=== PATIENT | male | born 1980 | race Caucasian/White ===

== ENCOUNTER 2017-01-23 19:17 | Observation (INO) | payer OTHER ==
[~2017-01-23] VITALS: Ht 180.3 cm; Wt 93.2 kg
[~2017-01-23 19:17] MED LIST changes: -AMOX875T PO; -ATROPINE SULFATE 0.1 MG/ML 5ML SYR IV PRN; -BUPIVACAINE/EPINEPHRINE 0.25% 1:200,000 30 ML VIAL ONE; -CEFAZOLIN 2000 MG/60 ML D5W IV SCH; -DEXAMETHASONE SOD INJ 4 MG/ML VIAL ONE; -EpHEDrine SULFATE INJ 50 MG/ML AMP IV PRN; -EpINEphrine INJ 1MG/ML AMP 1 MG/ML AMP ONE; -FENTANYL CITRATE INJ 50 MCG/1 ML 2 ML VIAL IV PRN; -FENTANYL CITRATE INJ 50 MCG/1 ML 2 ML VIAL ONE; -FLUMAZENIL 0.1 MG/1 ML 10 ML VIAL IV PRN; -HYDROmorphone INJ 2 MG/ML SYR/VIAL IV PRN; -LABETALOL HCL IV 5 MG/ML 20ML IV PRN; -LACTATED RINGER'S 1000ML 1,000 ML IV SCH; -LIDOCAINE HCL 2% 2 ML VIAL (20MG/ML) ONE; -MEPERIDINE HCL 25 MG/ML CARP IV PRN; -MIDAZOLAM HCL 1 MG/ML 2ML VIAL ONE; -NALOXONE HCL 0.4 MG/1 ML VIAL/CARP IV PRN; -ONDANSETRON INJ 2 MG/ML 2 ML VIAL IV PRN; -ONDANSETRON INJ 2 MG/ML 2 ML VIAL ONE; -OXYCODONE/ACETAMINOPHEN 5-325 TAB PO PRN; -PHENYLEPHRINE 100MCG/ML 5ML SYR IV PRN; -PROPOFOL IV EMULSION 10 MG/ML 20 ML VIAL IV ONE; -ROPIVACAINE 0.5% 5 MG/ML 30 ML VIAL ONE; -SODIUM CHLORIDE 0.9% 1000ML 1,000 ML IV SCH
--- NOTE | 2017-01-23 19:45 | EMERGENCY ROOM VISIT NOTE ---
History Report prepared by Natanael: Laci Darby Under the Supervision of: Dr. Power Castano M.D. 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 This shortness of breath is worse while sitting. Associated symptoms include a cough. The patient had right shoulder arthroscopic acromioplasty performed by Dr. Epperson at 1000 this morning. He denies experiencing any symptoms immediately after this surgery. 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 Please see Additional Medical History Sheet. Past Medical & Surgical Medical Problems: (1) Kidney stones (2) Right lower lobe pneumonia (3) Sinus arrhythmia Surgical Problems: (1) History of vasectomy Family History Diabetes mellitus Social History Smoking Status: Current Every Day Smoker Alcohol Use: occasionally Marital Status: Housing Status: lives with significant other Occupation Status: employed Current/Historical Medications Scheduled PRN Ketorolac Tromethamine (Toradol), 10 MG PO Q8 PRN for Pain Oxycodone/Acetaminophen 5MG/325MG (Percocet 5MG/325MG), 1-2 TABLETS PO Q6 PRN for Pain Allergies Coded Allergies: No Known Allergies (Unverified , 01/23/17) Physical Exam Vital Signs Date Time Temp Pulse Resp B/P Pulse Ox O2 Delivery O2 Flow Rate FiO2 01/23/17 22:18 75 23 135/83 92 Room Air 01/23/17 21:30 108 14 149/92 93 Room Air 01/23/17 20:45 126 18 138/117 96 Room Air 01/23/17 20:31 108 24 147/94 93 Room Air 01/23/17 19:50 123 01/23/17 19:31 98 Room Air 01/23/17 19:31 Room Air 98 01/23/17 19:20 36.5 124 24 159/97 96 Physical Exam GENERAL: Patient is hyperventilating upon exam. Some labored breathing also noted. SKIN: Bandages over right shoulder consistent with recent surgery. HEENT: Normal head, pupils equal, reactive to light and accommodation. LUNGS: Slightly decreased breath sounds on right side. HEART: No murmurs. No gallops. No rubs ABDOMEN: Soft, nontender. EXTREMITIES: Right arm in sling, consistent with recent surgery. No pedal or pretibial edema. No calf or thigh tenderness. NEUROLOGIC: Cranial nerves II-XII within normal limits. No gross motor sensory function deficits. Medical Decision & Procedures ER Provider Diagnostic Interpretation: Radiology results as stated below per my review and radiologist interpretation: CHEST ONE VIEW PORTABLE CLINICAL HISTORY: suspect right pneumo dyspnea COMPARISON STUDY: 08/24/2015 FINDINGS: Segmental atelectasis right base. Mild elevation right hemidiaphragm. Left lung is clear. IMPRESSION: Infiltrate versus segmental atelectasis right base. Mild elevation right hemidiaphragm. Electronically signed by: Manuel Escobar M.D. 01/23/2017 7:59 PM Dictated Date/Time: 01/23/2017 7:59 PM CHEST CTA for PULMONARY ARTERIES CT DOSE: 734.82 mGy.cm HISTORY: Chest pain dyspnea TECHNIQUE: Multiaxial CT images of the chest were performed following the intravenous administration of contrast to evaluate the pulmonary arteries. Maximal intensity projection images were also obtained. COMPARISON STUDY: None. FINDINGS: Thoracic aorta is normal throughout. Pulmonary vasculature enhances appropriately. The upper lungs are clear. There is a parenchymal infiltrate medial aspect right lower lobe. This potentially relates to aspiration pneumonitis. There are postoperative changes about the right shoulder and anterior right chest wall. IMPRESSION: 1. Study is negative for pulmonary embolus. 2. Focal consolidative infiltrate medial aspect right base. 3. Given the patient's history, aspiration pneumonitis is a diagnostic possibility. Electronically signed by: Manuel Escobar M.D. 01/23/2017 9:20 PM Dictated Date/Time: 01/23/2017 9:16 PM Laboratory Results 01/23/17 19:45 Red Blood Count 5.34, Mean Corpuscular Volume 86.1, Mean Corpuscular Hemoglobin 31.1, Mean Corpuscular Hemoglobin Concent 36.1, Mean Platelet Volume 10.8, Neutrophils (%) (Auto) 92.1, Lymphocytes (%) (Auto) 6.8, Monocytes (%) (Auto) 0.9, Eosinophils (%) (Auto) 0.0, Basophils (%) (Auto) 0.0, Neutrophils # (Auto) 13.64, Lymphocytes # (Auto) 1.00, Monocytes # (Auto) 0.13, Eosinophils # (Auto) 0.00, Basophils # (Auto) 0.00 01/23/17 19:45 Test 01/23/17 19:45 01/23/17 19:51 White Blood Count 14.80 K/uL (4.8-10.8) Red Blood Count 5.34 M/uL (4.7-6.1) Hemoglobin 16.6 g/dL (14.0-18.0) Hematocrit 46.0 % (42-52) Mean Corpuscular Volume 86.1 fL (80-100) Mean Corpuscular Hemoglobin 31.1 pg (25-34) Mean Corpuscular Hemoglobin Concent 36.1 g/dl (32-36) Platelet Count 268 K/uL (130-400) Mean Platelet Volume 10.8 fL (7.4-10.4) Neutrophils (%) (Auto) 92.1 % Lymphocytes (%) (Auto) 6.8 % Monocytes (%) (Auto) 0.9 % Eosinophils (%) (Auto) 0.0 % Basophils (%) (Auto) 0.0 % Neutrophils # (Auto) 13.64 K/uL (1.4-6.5) Lymphocytes # (Auto) 1.00 K/uL (1.2-3.4) Monocytes # (Auto) 0.13 K/uL (0.11-0.59) Eosinophils # (Auto) 0.00 K/uL (0-0.5) Basophils # (Auto) 0.00 K/uL (0-0.2) RDW Standard Deviation 40.6 fL (36.4-46.3) RDW Coefficient of Variation 12.8 % (11.5-14.5) Immature Granulocyte % (Auto) 0.2 % Immature Granulocyte # (Auto) 0.03 K/uL (0.00-0.02) Anion Gap 13.0 mmol/L (3-11) Est Creatinine Clear Calc Drug Dose 93.0 ml/min Estimated GFR () 81.9 Estimated GFR (Non- 70.7 BUN/Creatinine Ratio 7.9 (10-20) Calcium Level 10.5 mg/dl (8.5-10.1) Total Bilirubin 0.6 mg/dl (0.2-1) Aspartate Amino Transf (AST/SGOT) 19 U/L (15-37) Alanine Aminotransferase (ALT/SGPT) 39 U/L (12-78) Alkaline Phosphatase 60 U/L (45-117) Total Protein 8.0 gm/dl (6.4-8.2) Albumin 4.1 gm/dl (3.4-5.0) Globulin 3.9 gm/dl (2.5-4.0) Albumin/Globulin Ratio 1.1 (0.9-2) Bedside D-Dimer 366 ng/mlFEU (0-450) Laboratory results as stated above per my review. Medications Administered Medications (Trade) Dose Ordered Sig/Keke Route Start Time Stop Time Status Last Admin Dose Admin Morphine Sulfate (MoRPHine SULFATE INJ) 8 mg Q1H PRN IV 01/23/17 21:00 01/23/17 23:04 DC 01/23/17 20:49 8 MG Ondansetron HCl (Zofran Inj) 4 mg PRN PRN IV 01/23/17 21:00 01/23/17 23:03 DC 01/23/17 20:49 4 MG Ceftriaxone Sodium (Rocephin Inj) 1 gm NOW STAT IV 01/23/17 21:25 01/23/17 21:26 DC 01/23/17 21:48 1 GM ECG Indication: chest pain, SOB/dyspnea Rate (beats per minute): 116 Rhythm: sinus tachycardia Findings: no acute ischemic change, no ectopy ED Course 1929: Past medical records reviewed. The patient was evaluated in room A12B. A complete history and physical examination was performed. 2051 : Upon reevaluation, the patient seems to be experiencing increased chest pain. Will order additional pain medication and monitor patient further. 2099: Ordered Zofran Injection 4 mg IV, Morphine Sulfate 8 mg IV. 2124: Ordered Rocephin Injection 1 gm IV. 2125: I updated the patient of the treatment plan. He is agreeable at this time. 2199: I discussed the patient's case with Dr. Villarreal ([facility] [place] He will evaluate the patient for further management and care. Medical Decision Nurses notes reviewed. Medical history sheet reviewed. Differential diagnosis includes but is not limited to: Pneumothorax, pulmonary embolism, atelectasis, pneumonia, post operative pain. Multiple labs, EKG and imaging were obtained. Please see above. The patient arrived here in extreme pain with labored breathing and diaphoresis. Patient could not find a comfortable position. There is initially concerned about a pneumothorax or PE. Chest x-ray revealed a unusual infiltrate. Despite a negative d-dimer I felt obligated to follow-up with a CT. No PE was found. Most likely this represents an aspiration pneumonia. The patient was given IV antibiotics after blood cultures were obtained. Patient was given pain medication. The patient will require admission due to his severe pain and labored breathing. I discussed care with the patient, family and hospitalist. Consults Time Called: 2131 Consulting Physician: Dr. Villarreal ([facility] [place]) Returned Call: 2199 Discussed the patient's case with Dr. Villarreal ([facility] [place]). The patient will be evaluated for further management. Impression Primary Impression: Aspiration pneumonia Scribe Attestation The scribe's documentation has been prepared under my direction and personally reviewed by me in its entirety. I confirm that the note above accurately reflects all work, treatment, procedures, and medical decision making performed by me. Departure Information Dispostion Being Evaluated By Hospitalist Referrals Reed Epperson DO (PCP) Patient Instructions My [facility]
[2017-01-23 19:58] LABS: COMPLETE YES; IG% 0.2 %; LYMPH % 6.8 %; MEAN CELL VOLUME 86.1 fL (80-100); MEAN CORPUSCULAR HEMOGLOBIN 31.1 pg (25-34); MEAN CORPUSCULAR HGB CONC 36.1 g/dl (32-36); MEAN PLATELET VOLUME 10.8 fL (7.4-10.4); MONO % 0.9 %; NEUT % 92.1 %; PLATELET COUNT 268 K/uL (130-400); RED BLOOD COUNT 5.34 M/uL (4.7-6.1)
--- NOTE | 2017-01-23 20:00 | DIAGNOSTIC IMAGING REPORT ---
CHEST ONE VIEW PORTABLE CLINICAL HISTORY: suspect right pneumo dyspnea COMPARISON STUDY: 08/24/2015 FINDINGS: Segmental atelectasis right base. Mild elevation right hemidiaphragm. Left lung is clear. IMPRESSION: Infiltrate versus segmental atelectasis right base. Mild elevation right hemidiaphragm. Electronically signed by: Manuel Escobar M.D. 01/23/2017 7:59 PM Dictated Date/Time: 01/23/2017 7:59 PM
[2017-01-23 20:15] LABS: BUN/CREATININE RATIO 7.9 (10-20); CREATININE 1.3 mg/dl (0.60-1.40)
[2017-01-23 20:18] LABS: ALB/GLOB RATIO 1.1 (0.9-2)
[2017-01-23 20:19] LABS: CALCIUM 10.5 mg/dl (8.5-10.1)
[2017-01-23] MEDS ORDERED: OPTIRAY 320 IV PRN (20:45)
[2017-01-23] MEDS ORDERED: MoRPHine SULFATE 10 MG/ML CARP/VIAL ONE (20:46)
[2017-01-23] MEDS ORDERED: ONDANSETRON INJ 2 MG/ML 2 ML VIAL ONE (20:46)
[2017-01-23] MEDS ORDERED: ONDANSETRON INJ 2 MG/ML 2 ML VIAL IV PRN ×2 (21:00→22:30)
[2017-01-23] MEDS ORDERED: MoRPHine SULFATE 10 MG/ML CARP/VIAL IV PRN (21:00)
--- NOTE | 2017-01-23 21:22 | DIAGNOSTIC IMAGING REPORT ---
CHEST CTA for PULMONARY ARTERIES CT DOSE: 734.82 mGy.cm HISTORY: Chest pain dyspnea TECHNIQUE: Multiaxial CT images of the chest were performed following the intravenous administration of contrast to evaluate the pulmonary arteries. Maximal intensity projection images were also obtained. COMPARISON STUDY: None. FINDINGS: Thoracic aorta is normal throughout. Pulmonary vasculature enhances appropriately. The upper lungs are clear. There is a parenchymal infiltrate medial aspect right lower lobe. This potentially relates to aspiration pneumonitis. There are postoperative changes about the right shoulder and anterior right chest wall. IMPRESSION: 1. Study is negative for pulmonary embolus. 2. Focal consolidative infiltrate medial aspect right base. 3. Given the patient's history, aspiration pneumonitis is a diagnostic possibility. Electronically signed by: Manuel Escobar M.D. 01/23/2017 9:20 PM Dictated Date/Time: 01/23/2017 9:16 PM
[2017-01-23] MEDS ORDERED: CEFTRIAXONE SOD INJ 1 GM ADDVIAL IV STA (21:25)
[2017-01-23 22:18] VITALS: O2SAT 92
[2017-01-23] MEDS ORDERED: ZOLPIDEM TARTRATE 5 MG TAB PO PRN (22:30)
[2017-01-23] MEDS ORDERED: ACETAMINOPHEN 325 MG TAB PO PRN (22:30)
[2017-01-23] MEDS ORDERED: HYDROCODONE/HOMATROPINE SYRUP 5MG/1.5MG 5ML UDP PO PRN (22:30)
[2017-01-23] MEDS ORDERED: MoRPHine SULFATE 4 MG/ML 1 ML CARP\\VIAL IV PRN (22:30)
[2017-01-23] MEDS ORDERED: MoRPHine SULFATE 2 MG/ML CARP IV PRN (22:30)
[2017-01-23] MEDS ORDERED: NITROGLYCERIN 0.4 MG SL PER TAB CHARGE SL PRN (22:30)
[2017-01-23] MEDS ORDERED: IV FLUIDS COMPLETED PRN (22:45)
[2017-01-23 22:59] VITALS: BP 128/81; PULSE 65; TEMP 36.7; O2SAT 95
[2017-01-23 23:00] VITALS: BP 128/81; PULSE 65; TEMP 36.7; Ht 180.3 cm; Wt 93.2 kg
[2017-01-23] MEDS: CLINDAMYCIN IV 900 MG in DEXTROSE 5% ADD-VANTAGE 100ML 100 ML IV SCH (23:33)
--- NOTE | 2017-01-23 23:44 | History and Physical ---
History & Physical Date & Time of Service: January 23, 2017 at 23:44 Chief Complaint: R Lower Lobe Pneumonia, Sinus Arrhythmia Primary Care Physician: No Doctor, Assigned History of Present Illness Source: patient, spouse The patient is a 36-year-old male who underwent right shoulder arthroscopic acromioplasty by Dr. Epperson at 10 AM in the morning, then developed severe right posterior chest pain and shortness of breath when he arrived home. He presented to the emergency department with those symptoms and a cough, and workup revealed an abnormal chest x-ray and CT of chest suggesting pneumonia, but no pulmonary embolism. Past Medical/Surgical History Medical Problems: (1) Kidney stones Status: Resolved Surgical Problems: (1) History of vasectomy Status: Resolved Family History Diabetes mellitus Social History Smoking Status: Current Every Day Smoker Smokeless Tobacco Use: No Alcohol Use: none Drug Use: none Marital Status: Housing status: lives with family Occupational Status: employed Multi-Drug Resistant Organisms History of MDRO: No Allergies Coded Allergies: No Known Allergies (Unverified , 01/23/17) Home Medications Scheduled PRN Ketorolac Tromethamine (Toradol), 10 MG PO Q8 PRN for Pain Oxycodone/Acetaminophen 5MG/325MG (Percocet 5MG/325MG), 1-2 TABLETS PO Q6 PRN for Pain Review of Systems Constitutional: No chills, No fatigue, No fever, No problem reported, No sweats , No weakness, No weight loss Eyes: No diplopia, No discharge, No eye pain, No problem reported, No redness, No worsening of vision ENT: No dental problems, No hearing loss, No nasal symptoms, No problem reported, No sore throat, No tinnitus, No trouble swallowing, No unusual epistaxis Respiratory: + cough, + dyspnea on exertion, + shortness of breath, No dyspnea at rest, No hemoptysis, No sputum, No wheezing Cardiovascular: + chest pain, No PND, No claudication, No edema, No orthopnea, No palpitations Abdomen: No GI bleeding, No constipation, No diarrhea, No nausea, No pain, No problem reported, No vomiting Musculoskeletal: No calf pain, No joint pain, No muscle pain, No problem reported, No swelling Genitourinary - Male: No dysuria, No hematuria, No impotence, No lesions, No penile discharge, No problem reported, No urinary frequency, No urinary hesitancy, No urinary incontinence, No urinary retention, No urinary urgency Neurologic: No balance problems, No memory loss, No numbness/tingling, No paralysis, No problem reported, No vertigo, No weakness Psychiatric: No anhedonism, No anxiety, No depression symptoms, No insomnia, No problem reported, No substance abuse Endocrine: No excessive thirst, No excessive urination, No fatigue, No problem reported Hematologic / Lymphatic: No abnormal bleeding/bruising, No clotting problems, No night sweats, No problem reported, No swollen lymph nodes Integumentary: No bleeding, No color change, No itch, No new/changing skin lesions, No problem reported, No rash Allergic / Immunologic: No environmental allergies, No food allergies, No frequent infections, No hives, No pet sensitivities, No poor healing, No problem reported, No prolonged convalescence, No seasonal allergies Physical Exam Vital Signs Date Time Temp Pulse Resp B/P Pulse Ox O2 Delivery O2 Flow Rate FiO2 01/23/17 22:59 36.7 65 15 128/81 95 Room Air 01/23/17 22:18 75 23 135/83 92 Room Air 01/23/17 21:30 108 14 149/92 93 Room Air 01/23/17 20:45 126 18 138/117 96 Room Air 01/23/17 20:31 108 24 147/94 93 Room Air 01/23/17 19:50 123 01/23/17 19:31 98 Room Air 01/23/17 19:31 Room Air 98 01/23/17 19:20 36.5 124 24 159/97 96 General Appearance: WD/WN, + moderate distress (the patient was in moderately severe distress secondary to right sided chest pain only during coughing.) Head: normocephalic, atraumatic Eyes: normal inspection, PERRL, EOMI, sclerae normal ENT: normal ENT inspection, hearing grossly normal, pharynx normal Neck: supple, no adenopathy, thyroid normal, no JVD, no carotid bruits, trachea midline Respiratory/Chest: chest non-tender, no accessory muscle use, + respiratory distress (moderately severe respiratory distress only during paroxysmal coughing ), + decreased breath sounds (at right base) Cardiovascular: no edema, no gallop, no JVD, no murmur, normal peripheral pulses, + pertinent finding (cardiac monitoring in the ED showed normal sinus rhythm with significant sinus arrhythmia) Abdomen/GI: normal bowel sounds, non tender, soft, no organomegaly, no pulsatile mass Back: normal inspection, no CVA tenderness, no muscle spasm, normal range of motion Extremities/Musculoskelatal: normal inspection, no calf tenderness, normal capillary refill, no pedal edema, normal range of motion, non-tender Neurologic/Psych: hospice aide II-XII nml as tested, no motor/sensory deficits, alert, normal mood/affect, normal reflexes, oriented x 3 Skin: normal color, warm/dry, no rash Lymphatic: no adenopathy Diagnostics Laboratory Results Results Past 24 Hours Test 01/23/17 19:45 01/23/17 19:51 Range/Units White Blood Count 14.80 4.8-10.8 K/uL Red Blood Count 5.34 4.7-6.1 M/uL Hemoglobin 16.6 14.0-18.0 g/dL Hematocrit 46.0 42-52 % Mean Corpuscular Volume 86.1 80-100 fL Mean Corpuscular Hemoglobin 31.1 25-34 pg Mean Corpuscular Hemoglobin Concent 36.1 32-36 g/dl Platelet Count 268 130-400 K/uL Mean Platelet Volume 10.8 7.4-10.4 fL Neutrophils (%) (Auto) 92.1 % Lymphocytes (%) (Auto) 6.8 % Monocytes (%) (Auto) 0.9 % Eosinophils (%) (Auto) 0.0 % Basophils (%) (Auto) 0.0 % Neutrophils # (Auto) 13.64 1.4-6.5 K/uL Lymphocytes # (Auto) 1.00 1.2-3.4 K/uL Monocytes # (Auto) 0.13 0.11-0.59 K/uL Eosinophils # (Auto) 0.00 0-0.5 K/uL Basophils # (Auto) 0.00 0-0.2 K/uL RDW Standard Deviation 40.6 36.4-46.3 fL RDW Coefficient of Variation 12.8 11.5-14.5 % Immature Granulocyte % (Auto) 0.2 % Immature Granulocyte # (Auto) 0.03 0.00-0.02 K/uL Sodium Level 145 136-145 mmol/L Potassium Level 4.0 3.5-5.1 mmol/L Chloride Level 109 98-107 mmol/L Carbon Dioxide Level 23 21-32 mmol/L Anion Gap 13.0 3-11 mmol/L Blood Urea Nitrogen 10 7-18 mg/dl Creatinine 1.30 0.60-1.40 mg/dl Est Creatinine Clear Calc Drug Dose 93.0 ml/min Estimated GFR () 81.9 Estimated GFR (Non- 70.7 BUN/Creatinine Ratio 7.9 10-20 Random Glucose 144 70-99 mg/dl Calcium Level 10.5 8.5-10.1 mg/dl Total Bilirubin 0.6 0.2-1 mg/dl Aspartate Amino Transf (AST/SGOT) 19 15-37 U/L Alanine Aminotransferase (ALT/SGPT) 39 12-78 U/L Alkaline Phosphatase 60 45-117 U/L Total Protein 8.0 6.4-8.2 gm/dl Albumin 4.1 3.4-5.0 gm/dl Globulin 3.9 2.5-4.0 gm/dl Albumin/Globulin Ratio 1.1 0.9-2 Bedside D-Dimer 366 0-450 ng/mlFEU Microbiology Results 01/23/17 Blood Culture, Received Pending 01/23/17 Blood Culture, Received Pending Diagnostic Radiology Patient Name: THELMA CEDENO Unit Number: [id number] Dictated: 01/23/171958 Transcribed: 01/23/171958 MS Printed Date/Time: [~ rep prt dt]/[~ rep prt tm] [~ rep ct labl] - [~ rep ct ivnm] [facility] [place] [address] Dictated: 01/23/171958 Transcribed: 01/23/171958 MS Printed Date/Time: [~ rep prt dt]/[~ rep prt tm] [~ rep ct labl] - [~ rep ct ivnm] [~ rep ct add3]] CHEST ONE VIEW PORTABLE CLINICAL HISTORY: suspect right pneumo dyspnea COMPARISON STUDY: 08/24/2015 FINDINGS: Segmental atelectasis right base. Mild elevation right hemidiaphragm. Left lung is clear. IMPRESSION: Infiltrate versus segmental atelectasis right base. Mild elevation right hemidiaphragm. Electronically signed by: Manuel Escobar M.D. 01/23/2017 7:59 PM Dictated Date/Time: 01/23/2017 7:59 PM The status of this report is Signed. Draft = Not yet reviewed or approved by Radiologist. Signed = Reviewed and approved by Radiologist. <AttendingPhy></AttendingPhy> <FamilyPhy>Reed Epperson, DO</FamilyPhy> < PrimaryPhy>Reed Epperson, DO</PrimaryPhy> <UnitNumber>[id number]</UnitNumber > <VisitNumber>[id number]</VisitNumber> <PatientName>THELMA CEDENO</PatientName > <DateOfBirth>1980</DateOfBirth> <Location>[facility]</Location> <ServiceDate> 01/23/17</ServiceDate> <MNE>ESINDI</MNE> <OrderingPhy>Power Castano M.D.</ OrderingPhy> <OrderingPhyMNE>f rep ord dr hernández</OrderingPhyMNE> <DictatingPhyMNE> f rep dict dr hernández</DictatingPhyMNE> <CCListMNE>f rep ct mne</CCListMNE> < AdmittingPhyMNE>f pt admit dr hernández</AdmittingPhyMNE> <AttendingPhyMNE>f pt attend dr hernández</AttendingPhyMNE> <ConsultingPhyMNE>f pt consult dr hernández</ConsultingPhyMNE> <FamilyPhyMNE>f pt fam dr hernández</FamilyPhyMNE> <OtherPhyMNE>f pt other dr hernández</OtherPhyMNE> < PrimaryPhyMNE>f pt prim care dr hernández</PrimaryPhyMNE> <ReferringPhyMNE>f pt referring dr hernández</ReferringPhyMNE> Patient Name: THELMA CEDENO Unit Number: [id number] Dictated: 01/23/172115 Transcribed: 01/23/172115 MS Printed Date/Time: [~ rep prt dt]/[~ rep prt tm] [~ rep ct labl] - [~ rep ct ivnm] [facility] [place] [address] Dictated: 01/23/172115 Transcribed: 01/23/172115 MS Printed Date/Time: [~ rep prt dt]/[~ rep prt tm] [~ rep ct labl] - [~ rep ct ivnm] [~ rep ct add3]] CHEST CTA for PULMONARY ARTERIES CT DOSE: 734.82 mGy.cm HISTORY: Chest pain dyspnea TECHNIQUE: Multiaxial CT images of the chest were performed following the intravenous administration of contrast to evaluate the pulmonary arteries. Maximal intensity projection images were also obtained. COMPARISON STUDY: None. FINDINGS: Thoracic aorta is normal throughout. Pulmonary vasculature enhances appropriately. The upper lungs are clear. There is a parenchymal infiltrate medial aspect right lower lobe. This potentially relates to aspiration pneumonitis. There are postoperative changes about the right shoulder and anterior right chest wall. IMPRESSION: 1. Study is negative for pulmonary embolus. 2. Focal consolidative infiltrate medial aspect right base. 3. Given the patient's history, aspiration pneumonitis is a diagnostic possibility. Electronically signed by: Manuel Escobar M.D. 01/23/2017 9:20 PM Dictated Date/Time: 01/23/2017 9:16 PM The status of this report is Signed. Draft = Not yet reviewed or approved by Radiologist. Signed = Reviewed and approved by Radiologist. <AttendingPhy></AttendingPhy> <FamilyPhy>No Doctor, Assigned</FamilyPhy> < PrimaryPhy>No Doctor, Assigned</PrimaryPhy> <UnitNumber>[id number]</UnitNumber> <VisitNumber>[id number]</VisitNumber> <PatientName>THELMA CEDENO</PatientName> <DateOfBirth>1980</DateOfBirth> <Location>[facility]</Location> <ServiceDate></ServiceDate> <MNE>ESINDI</MNE> <OrderingPhy>Power Castano M.D.</ OrderingPhy> <OrderingPhyMNE>f rep ord dr hernández</OrderingPhyMNE> <DictatingPhyMNE> f rep dict dr hernández</DictatingPhyMNE> <CCListMNE>f rep ct mne</CCListMNE> < AdmittingPhyMNE>f pt admit dr hernández</AdmittingPhyMNE> <AttendingPhyMNE>f pt attend dr hernández</AttendingPhyMNE> <ConsultingPhyMNE>f pt consult dr hernández</ConsultingPhyMNE> <FamilyPhyMNE>f pt fam dr hernández</FamilyPhyMNE> <OtherPhyMNE>f pt other dr hernández</OtherPhyMNE> < PrimaryPhyMNE>f pt prim care dr hernández</PrimaryPhyMNE> <ReferringPhyMNE>f pt referring dr hernández</ReferringPhyMNE> EKG EKG shows sinus tachycardia at 116 bpm, possible old septal infarct, with no acute ST-T changes. Impression Assessment and Plan Right lower lobe pneumonia--patient be admitted and placed on ceftriaxone 1 g IV daily, clindamycin 900 mg IV every 8 hours, duonebs every 4 hours while awake and every 2 hours when necessary, and Hycodan syrup 5 ML's by mouth every [address] on Toradol 30 mg IV every 6 hours when necessary, oxycodone/acetaminophen 5/325 by mouth every 6 hours when necessary, and morphine sulfate 2-4 mg IV every 2 hours when necessary. Sinus arrhythmia with relatively prolonged pauses noted on monitor in the ED/ abnormal EKG possible old septal infarct--patient be admitted to telemetry unit for cardiac rhythm monitoring and a 2-D echocardiogram with Dopplers. Status post right shoulder arthroscopic acromioplasty--he is presently wearing a sling, and has no complaints as far as pain. Surgery was by Dr. Epperson. Level of Care Telemetry Advanced Directives Existing Advance Directive: No Existing Living Will: No Existing Power of [place]: No Resuscitation Status FULL RESUSCITATION VTE Prophylaxis VTE Risk Assessment Done? Y/N: Yes Risk Level: Moderate Given or contraindicated: SCD's
[2017-01-24] MEDS: OXYCODONE/ACETAMINOPHEN 5-325 TAB PO PRN ×2 (00:50→08:12)
[2017-01-24] MEDS: KETOROLAC TROMETHAMINE 30 MG/ML VIAL IV PRN ×2 (03:46→10:35)
[2017-01-24 04:07] VITALS: BP 124/68; PULSE 69; TEMP 36.7; O2SAT 93
[2017-01-24 06:44] LABS: BASO % 0.1 %; BASO ABS # 0.01 K/uL (0-0.2); COMPLETE YES; HEMATOCRIT 42.3 % (42-52); IG% 0.4 %; LYMPH % 12.4 %; LYMPH ABS # 2.38 K/uL (1.2-3.4); MEAN CELL VOLUME 87.2 fL (80-100); MEAN CORPUSCULAR HEMOGLOBIN 29.9 pg (25-34); MEAN CORPUSCULAR HGB CONC 34.3 g/dl (32-36); MEAN PLATELET VOLUME 11.1 fL (7.4-10.4); MONO % 6.9 %; NEUT % 80.2 %; PLATELET COUNT 252 K/uL (130-400); RED BLOOD COUNT 4.85 M/uL (4.7-6.1); WHITE BLOOD COUNT 19.15 K/uL (4.8-10.8)
[2017-01-24 07:30] LABS: BUN/CREATININE RATIO 11.1 (10-20); CREATININE 0.89 mg/dl (0.60-1.40); MAGNESIUM 1.9 mg/dl (1.8-2.4); POTASSIUM 3.8 mmol/L (3.5-5.1)
[2017-01-24 08:00] VITALS: BP 123/68; PULSE 75; TEMP 36.9; O2SAT 93
[2017-01-24] MEDS ORDERED: ALBUT/IPRATROP 3MG/0.5MG NEB 3 ML VIAL INH SCH (08:00)
[2017-01-24] MEDS: CLINDAMYCIN IV 900 MG in DEXTROSE 5% ADD-VANTAGE 100ML 100 ML IV SCH (08:13)
[2017-01-24] MEDS ORDERED: AMOX875T PO (10:05)
--- NOTE | 2017-01-24 10:07 | Discharge Instructions ---
Discharge Instructions Date of Service January 24, 2017. Admission Reason for Admission: R Lower Lobe Pneumonia, Sinus Arrhythmia Discharge Discharge Diagnosis / Problem: aspiration pneumonia Discharge Goals Goal(s): Diagnostic testing, Therapeutic intervention Activity Recommendations Activity Limitations: as noted below (please follow directions of Dr Epperson for your shoulder) . Current Hospital Diet Patient's current hospital diet: Regular Diet Discharge Diet Recommended Diet: Regular Diet Pending Studies Studies pending at discharge: yes List of pending studies: blood cultures Medical Emergencies . Who to Call and When: Medical Emergencies: If at any time you feel your situation is an emergency, please call 911 immediately. . Non-Emergent Contact Non-Emergency issues call your: Primary Care Provider (follow up in a week for pneumonia recheck) Call Non-Emergent contact if: temperature is above 101, your pain is unusual for you . . "Provider Documentation" section prepared by Fidel Olivas. . VTE Core Measure Inpt VTE Proph given/why not?: SCD's, Treatment not indicated
[2017-01-24 10:26] VITALS: BP 124/68; PULSE 69; TEMP 36.7; O2SAT 93
--- NOTE | 2017-01-24 13:40 | Discharge Summary ---
Discharge Summary Date of Service January 24, 2017. Discharge Summary Admission Date: January 23, 2017 at 22:20 Discharge Date: January 24, 2017 Discharge Disposition: Home Principal Diagnosis: right lower lobe pneumonia, sinus arrythmia Medication Reconciliation New Medications: Amoxicillin & Pot Clavulanate (Augmentin 875-125 mg) 1 Tab Tab 875 MG PO BID, #20 TAB Continued Medications: Ketorolac Tromethamine (Toradol) 10 Mg Tab 10 MG PO Q8 PRN for Pain, #15 TAB Oxycodone/Acetaminophen 5MG/325MG (Percocet 5MG/325MG) Tab 1-2 TABLETS PO Q6 PRN for Pain, #40 TAB Discharge Exam Review of Systems: Constitutional: No chills, No fatigue, No fever, No weakness Respiratory: No cough, No dyspnea on exertion, No shortness of breath, No sputum Cardiovascular: No chest pain, No edema, No orthopnea Abdomen: No diarrhea, No nausea, No pain, No vomiting Musculoskeletal: + joint pain, + muscle pain Physical Exam: General Appearance: WD/WN, + mild distress Neck: supple, no JVD Respiratory/Chest: chest non-tender, lungs clear, normal breath sounds Cardiovascular: regular rate, rhythm, no murmur Abdomen / GI: normal bowel sounds, non tender, soft Extremities: no pedal edema, normal range of motion Skin: normal color, no rash Hospital Course Right lower lobe pneumonia--patient feels will will cover aspiration with augmentin, recommend follow up next week with pcp Sinus arrhythmia with asymptomatic, also follow up with pcp Status post right shoulder arthroscopic acromioplasty--he is presently wearing a sling,pain control and notify Dr Epperson Total Time Spent: Greater than 30 minutes This includes examination of the patient, discharge planning, medication reconciliation, and communication with other providers. Discharge Instructions Please refer to the electronic Patient Visit Report (Discharge Instructions) for additional information.
--- NOTE | 2017-01-24 14:50 | ECHOCARDIOGRAM REPORT ---
*NOTICE TO RECEIVING [employer] This information is strictly Confidential and protected under [place] law. [place] law prohibits you from making any further disclosure of this information unless further disclosure is expressly permitted by the written consent of the person to whom it pertains or is authorized by law. A general authorization for the release of medical or other information is not sufficient for this purpose. Hospital accepts no responsibility if the information is made available to any other person, INCLUDING THE PATIENT. Interpretation Summary * Name: THELMA CEDENO Study Date: 01/24/2017 07:00 AM BP: 124/68 mmHg * Patient Location: C.2T\S\S239\S\1 HR: 69 * : 1980 (M/d/yyyy) Gender: Male Height: 71 in * Age: 36 yrs Ethnicity: [place] Weight: 207 lb * Ordering Physician: Isma Villarrael * Referring Physician: Reed Epperson * Performed By: Yamile Richter * * Reason For Study: POSSIBLE SEPTAL INFARCT ON EKG, SINUS ARRHYMIA * BSA: 2.1 m2 * -- Conclusions -- * Left ventricular systolic function is normal. * No regional wall motion abnormalities noted. * Ejection Fraction = 65-70%. * No significant valvular pathology. Procedure Details * A complete two-dimensional transthoracic echocardiogram was performed (2D, M-mode, Doppler and color flow Doppler). * A contrast injection of Definity was performed to improve assessment of LV function. * Contrast was injected into an intravenous site in the left arm. * One vial of Definity ultrasound contrast was diluted in normal saline to a total volume of 10 ml. A total of '2' ml of solution was administered during imaging. * Lot # [id number] of Definity utilized for procedure. * Expiration date 01/07. * The attending nurse who injected the contrast agent was BRANDY LOVE RN. Left Ventricle * The left ventricle is normal in size. * There is normal left ventricular wall thickness. * Ejection Fraction = 65-70%. * Left ventricular systolic function is normal. * No regional wall motion abnormalities noted. Right Ventricle * The right ventricle is grossly normal size. * The right ventricular systolic function is normal as assessed by tricuspid annular plane systolic excursion (TAPSE) (normal >1.5 cm). Atria * Borderline left atrial enlargement. * Right atrial size is normal. * No ASD detected; PFO is not assessed. Mitral Valve * The mitral valve anatomy is normal. * There is no mitral valve stenosis. * Significant mitral regurgitation is absent. Tricuspid Valve * The tricuspid valve anatomy is normal. * Significant tricuspid regurgitation is absent. Aortic Valve * The aortic valve is normal in structure and function. * No hemodynamically significant valvular aortic stenosis. * There is no significant aortic regurgitation. Pulmonic Valve * The pulmonic valve is not well visualized. Great Vessels * The aortic root is normal size. Pericardium/Pleural * There is no pericardial effusion. Great Vessels * Normal inferior vena cava size and collapsability with sniff indicates a normal right atrial pressure of 3 mmHg MMode 2D Measurements and Calculations IVSd 1.0 cm IVSs 1.6 cm LVIDd 4.9 cm LVIDs 2.7 cm LVPWd 1.1 cm LVPWs 1.8 cm IVS/LVPW 0.90 FS 44.2 % EDV(Teich) 113.2 ml ESV(Teich) 27.9 ml EF(Teich) 75.3 % EDV(cubed) 118.2 ml ESV(cubed) 20.5 ml EF(cubed) 82.7 % % IVS thick 62.6 % % LVPW thick 59.6 % LV mass(C)d 190.2 grams LV mass(C)dI 88.9 grams/m\S\2 LV mass(C)s 176.1 grams LV mass(C)sI 82.3 grams/m\S\2 SV(Teich) 85.3 ml SI(Teich) 39.9 ml/m\S\2 SV(cubed) 97.7 ml SI(cubed) 45.7 ml/m\S\2 ACS 1.3 cm LA dimension 3.8 cm asc Aorta Diam 3.2 cm LVOT diam 2.1 cm LVOT area 3.6 cm\S\2 LVAd ap4 37.4 cm\S\2 LVLd ap4 9.6 cm EDV(MOD-sp4) 119.7 ml EDV(sp4-el) 123.7 ml LVAs ap4 15.0 cm\S\2 LVLs ap4 6.8 cm ESV(MOD-sp4) 26.6 ml ESV(sp4-el) 27.8 ml EF(MOD-sp4) 77.8 % EF(sp4-el) 77.5 % LVAd ap2 34.6 cm\S\2 LVLd ap2 9.5 cm EDV(MOD-sp2) 104.7 ml EDV(sp2-el) 107.2 ml LVAs ap2 15.0 cm\S\2 LVLs ap2 7.3 cm ESV(MOD-sp2) 24.3 ml ESV(sp2-el) 26.3 ml EF(MOD-sp2) 76.8 % EF(sp2-el) 75.5 % LVLd %diff -1.23 % EDV(MOD-bp) 111.5 ml LVLs %diff 6.2 % ESV(MOD-bp) 26.3 ml EF(MOD-bp) 76.4 % SV(MOD-sp4) 93.1 ml SI(MOD-sp4) 43.5 ml/m\S\2 SV(MOD-sp2) 80.4 ml SI(MOD-sp2) 37.6 ml/m\S\2 SV(MOD-bp) 85.2 ml SI(MOD-bp) 39.8 ml/m\S\2 SV(sp4-el) 95.9 ml SI(sp4-el) 44.8 ml/m\S\2 SV(sp2-el) 80.9 ml SI(sp2-el) 37.8 ml/m\S\2 Doppler Measurements and Calculations MV E max mary 77.3 cm/sec MV dec time 0.21 sec LV V1 max PG 5.8 mmHg LV V1 max 119.3 cm/sec PA V2 max 76.0 cm/sec PA max PG 2.3 mmHg
[2017-01-24] MEDS ORDERED: CEFTRIAXONE SOD INJ 1 GM in DEXTROSE 5% ADD-VANTAGE 50ML 50 ML IV SCH (22:00)
== END 2017-01-24 10:45 | disposition home or self-care (01) ==
LOC: ENRESERVDT → ENRESERVTM → C.EDB 19:19 → C.2T 22:20
PROVIDERS: ADMIT Hospitalist; ATTEND Internal Medicine
DX: J18.9 Pneumonia, unspecified organism (principal); I49.9 Cardiac arrhythmia, unspecified; F17.210 Nicotine dependence, cigarettes, uncomplicated; Z83.3 Family history of diabetes mellitus

== ENCOUNTER → 2017-01-23 | Day surgery (SDC) | payer OTHER ==
[2017-01-14 08:28] VITALS: Ht 180.3 cm; Wt 93.2 kg
[~2017-01-23] VITALS: Ht 180.3 cm; Wt 93.2 kg
[~2017-01-23] MED LIST: AMOX875T PO; ATROPINE SULFATE 0.1 MG/ML 5ML SYR IV PRN; BUPIVACAINE/EPINEPHRINE 0.25% 1:200,000 30 ML VIAL ONE; CEFAZOLIN 2000 MG/60 ML D5W IV SCH; DEXAMETHASONE SOD INJ 4 MG/ML VIAL ONE; EpHEDrine SULFATE INJ 50 MG/ML AMP IV PRN; EpINEphrine INJ 1MG/ML AMP 1 MG/ML AMP ONE; FENTANYL CITRATE INJ 50 MCG/1 ML 2 ML VIAL IV PRN; FENTANYL CITRATE INJ 50 MCG/1 ML 2 ML VIAL ONE; FLUMAZENIL 0.1 MG/1 ML 10 ML VIAL IV PRN; HYDROmorphone INJ 2 MG/ML SYR/VIAL IV PRN; KETO10TA PO; LABETALOL HCL IV 5 MG/ML 20ML IV PRN; LACTATED RINGER'S 1000ML 1,000 ML IV SCH; LIDOCAINE HCL 2% 2 ML VIAL (20MG/ML) ONE; MEPERIDINE HCL 25 MG/ML CARP IV PRN; MIDAZOLAM HCL 1 MG/ML 2ML VIAL ONE; NALOXONE HCL 0.4 MG/1 ML VIAL/CARP IV PRN; ONDANSETRON INJ 2 MG/ML 2 ML VIAL IV PRN; ONDANSETRON INJ 2 MG/ML 2 ML VIAL ONE; OXYC-57 PO; OXYCODONE/ACETAMINOPHEN 5-325 TAB PO PRN; PHENYLEPHRINE 100MCG/ML 5ML SYR IV PRN; PROPOFOL IV EMULSION 10 MG/ML 20 ML VIAL IV ONE; ROPIVACAINE 0.5% 5 MG/ML 30 ML VIAL ONE; SODIUM CHLORIDE 0.9% 1000ML 1,000 ML IV SCH
--- NOTE | 2017-01-23 08:04 | History & Physical Bridge - [place] ---
H&P Re-Evaluation Bridge Note: I have examined the patient, reviewed the History & Physical and in the interval since the performance of the History & Physical I have noted the following changes of clinical significance: No changes noted
--- NOTE | 2017-01-23 10:49 | Discharge Instructions-SurgCtr ---
Discharge Instructions Date of Service January 23, 2017. Visit Reason for Visit: Right Shoulder Arthritis Of Acromioclavicular Jt Discharge Discharge Diagnosis / Problem: SAME ABOVE Discharge Goals Goal(s): Decrease discomfort, Improve function Activity Recommendations Activity Limitations: as noted below Lifting Limitations: gradually increase as tolerated Exercise/Sports Limitations: gradually increase as tolerated Shower/Bathe: tomorrow Driving or Machine Use: WHEN OUT OF THE SLING AND NOT ON PAIN MEDICATION Anesthesia . Post Anesthesia Instructions: If you have had General Anesthesia or IV Sedation: * Do not drive today. * Resume driving when surgeon permits. * Do not make important decisions or sign legal documents today. * Call surgeon for: 1. Temperature elevations greater than 101 degrees F. 2. Uncontrollable pain. 3. Excessive bleeding. 4. Persistent nausea and vomiting. 5. Medication intolerance (nausea, vomiting or rash). * For nausea and vomiting use only clear liquids such as: tea, soda, bouillon until nausea subsides, then gradually increase diet as tolerated. * If you have any concerns or questions, call your surgeon's office. If physician is unavailable and it is an emergency, call 911 or go to the nearest emergency room. . Instructions / Follow-Up Instructions / Follow-Up MEDICATIONS: * Resume previous medications unless instructed otherwise by your surgeon. * Always take pain medication on a full stomach or with food to avoid upset stomach. * Do not drink alcohol or drive while taking narcotics. * Ibuprofen or Tylenol may be taken if narcotic not needed. SPECIAL CARE INSTRUCTIONS: __ None _X_ Keep extremity elevated and iced x 48 hours; apply ice 20-30 minutes 8-10 times/day. May remove at night. _X_ Sling (WEAR NEEDED FOR COMFORT) __24 hrs/day __ Remove at night __ Shoulder Immobilizer __ 24 hrs/day __ Remove at night _X_ Dressing __ Maintain until seen in office, may shower with plastic over site _X_ Remove dressings in 24-48 hours and then may shower _X_ Cover incisions with band-aids after showering __ Do not remove steri-strips Call physician if chills or temperature rises above 102 degrees or pain unrelieved by prescribed pain medications at . . Diet Recommendations Home Diet: no limitations Fluid Restriction: None Procedures Procedures Performed: Right Shoulder Arthroscopy, Distal Clavicle Resection, Acromioplasty Pending Studies Studies pending at discharge: no Work Instructions Return To Work: after follow-up Lifting Limitations: TOLERATED Medical Emergencies . Who to Call and When: Medical Emergencies: If at any time you feel your situation is an emergency, please call 911 immediately. . Non-Emergent Contact Non-Emergency issues call your: Primary Care Provider Call Non-Emergent contact if: you have a fever, temperature is above 101.5 . . "Provider Documentation" section prepared by Justice Chun. .
[2017-01-23 11:35] VITALS: TEMP 36.5
--- NOTE | 2017-01-23 11:49 | Anesthesia Progress Nt - [facility] ---
Anesthesia Post Op Note Date & Time January 23, 2017 at 11:49 Vital Signs Pain Intensity: 0 Vital Signs Past 12 Hours Date Time Temp Pulse Resp B/P Pulse Ox O2 Delivery O2 Flow Rate FiO2 01/23/17 11:35 36.5 75 14 140/86 97 Room Air 01/23/17 11:20 133/82 01/23/17 11:18 71 15 01/23/17 11:18 71 15 95 01/23/17 11:17 36.6 72 16 133/82 96 Room Air 01/23/17 11:15 135/87 01/23/17 11:13 77 19 92 01/23/17 11:13 77 19 01/23/17 11:10 132/82 01/23/17 11:08 64 17 01/23/17 11:08 65 17 93 01/23/17 11:05 126/91 01/23/17 11:03 88 21 01/23/17 11:03 86 21 98 01/23/17 11:00 132/79 01/23/17 10:58 75 18 01/23/17 10:58 76 18 98 01/23/17 10:55 134/85 01/23/17 10:53 81 16 98 01/23/17 10:53 82 16 01/23/17 10:50 145/90 01/23/17 10:48 36.4 99 24 160/91 97 Mask 6 01/23/17 10:48 110 160/91 97 01/23/17 10:48 110 01/23/17 09:40 56 16 125/80 94 Diffusion Mask 5 01/23/17 09:25 62 18 134/88 98 Diffusion Mask 5 01/23/17 07:53 36.7 67 18 147/91 98 Room Air Notes Mental Status: alert / awake / arousable, participated in evaluation Pt Amnestic to Procedure: Yes Nausea / Vomiting: adequately controlled Pain: adequately controlled Airway Patency, RR, SpO2: stable & adequate BP & HR: stable & adequate Hydration State: stable & adequate Anesthetic Complications: no major complications apparent
--- NOTE | 2017-01-23 11:51 | [facility] Post Operative Brief Note ---
Immediate Operative Summary Operative Date January 23, 2017. Pre-Operative Diagnosis Right Shoulder AC Joint Arthritis Post-Operative Diagnosis Same Procedure(s) Performed Right Shoulder Arthroscopy, Distal Clavicle Resection, Acromioplasty Surgeon Dr. 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
[2017-01-23 12:00] VITALS: BP 132/86; PULSE 65; O2SAT 97
--- NOTE | 2017-01-23 12:27 | OPERATIVE REPORT ---
DATE OF OPERATION: 01/23/2017 PREOPERATIVE DIAGNOSIS: External impingement, acromioclavicular joint arthritis of the right shoulder. POSTOPERATIVE DIAGNOSIS: Same. PROCEDURE: Right shoulder diagnostic arthroscopy with extensive debridement, distal clavicle resection, acromioplasty. SURGEON: Dr. Reed Epperson. TECHNICAL SUPPORT DIRECTOR: Cuong Chun PA-C, whose assistance was necessary for positioning the arm and helping with instrumentation. ANESTHESIA: General with a right interscalene nerve block. COMPLICATIONS: None. CONDITION: Stable to PACU. INDICATIONS: Bill is a pleasant 36-year-old male who presented to my office with a 3-month history of severe right shoulder pain. He fell hard on the ice. He has been unable to sleep for the past 3 months because of his shoulder pain. MRI and clinical examination were diagnostic mostly for AC joint arthritis. After failing conservative treatment, he elected to undergo arthroscopy. OPERATION AND FINDINGS: On 01/23/2017 he arrived at [facility] for the above procedure. He was seen in the preoperative holding area and the operative extremity was identified and signed. He was given a preoperative antibiotic, taken back to the operating room, laid on the table in supine position and put under general anesthesia. He was then put into the beachchair position. The right shoulder was prepped and draped in sterile fashion. Time-out was done and the patient and operative extremity was properly identified. A scope was introduced in the posterior portal. Diagnostic arthroscopy showed no cartilage damage to the humeral head or the glenoid. The biceps tendon was intact. The supraspinatus, infraspinatus, teres minor and subscapularis were all checked and intact. There was a little fraying of the anterior labrum. An anterior portal was made. A shaver was used to do very minimal debridement of the intraarticular structures. The scope was then put into the subacromial space. A lateral portal was made. A shaver was used to do an extensive debridement of all the subacromial and subdeltoid bursa. There were several red areas of bursitis that were removed. There was a large Bigliani type 3 subacromial spur. An ablator was used to tease the coracoacromial ligament off the undersurface of the acromion and a 5-0 marianna was then used to complete an acromioplasty. Attention was then turned to the distal clavicle. Through the anterior portal, a shaver and ablator were used to skeletonize the distal clavicle. A 5-0 marianna was then used to resect the distal 7 mm from the clavicle. Complete resection was checked under direct visualization. A shaver was used to remove any excess debris. Final diagnostic arthroscopy showed no additional pathology. Arthroscopic instruments removed from the shoulder. Portal sites were closed with 3-0 nylon. He was then placed in a soft dressing and a right arm sling. He was then extubated, transferred to a litter and taken to the postanesthesia care unit in stable condition. He tolerated the procedure well. I attest to the content of the Intraoperative Record and any orders documented therein. Any exceptio ns are noted below.
== END | disposition home or self-care (01) ==
LOC: X.SURG 07:37
PROVIDERS: ATTEND Orthopaedic Surgery
DX: M25.811 Other specified joint disorders, right shoulder (principal); M19.011 Primary osteoarthritis, right shoulder